=== PATIENT | male | born 1995 ===

== ENCOUNTER 2025-03-31 13:58 | Emergency (ER) | payer BC, SELFPAY ==
--- OUTSIDE RECORDS SUMMARY | 2023-02-07 18:00 | XMS_ITS | Encounter Summary ---
Author Organization [facility] Address [address] [place] [id number] Care Team Providers Care Floor Renovator Name Role Phone Pcp, No Primary Care Provider Unavailabl e Encounter Details Date Type Department Care Team (Latest Contact Info) Description 02/07/2023 7:00 PM EDT Hospital Encounter [facility] [address] [place] [address] [place] [phone] Lei James MD [address] [place] [id number] Acute midline low back pain without sciatica Social History Tobacco Use Types Packs/Day Years Used Date Smoking Tobacco: Never Smokeless Tobacco: Never Alcohol Use Standard Drinks/Week Comments Yes 0 (1 standard drink = 0.6 oz pur e alcohol) social/rare Sex and Gender Information Value Date Recorded Sex Assigned at Not on file Legal Sex Male 5:16 PM EDT Gender Identity Not on file Sexual Orientation Not on file documented as of this encounter Plan of Treatment Not on file documented as of this encounter Procedures Procedure Name Priority Date/Time Associated Diagnosis Comments XR LUMBAR SPINE 2 OR 3 VIEWS Routine 02/07/2023 7:18 PM EDT Acute midline low back pain without sciatica documented in this encounter Results * XR Lumbar spine 2 or 3 views (02/07/2023 7:18 PM EDT) Anatomical Region Laterality Modality L-spine Computed Radiogr aphy 02/07/2023 7:20 PM EDT Impressions 02/07/2023 7:21 PM EDT Normal. Narrative 02/07/2023 7:21 PM EDT PROCEDURE: XR LUMBAR SPINE 2 OR 3 VIEWS INDICATION: Pain with lifting today COMPARISON: None. TECHNIQUE: AP and lateral views of the lumbar spine. FINDINGS: The vertebral body heights and alignment are maintained. There is no fracture or bone destruction. The disc spaces are preserved. The visualized soft tissues are unremarkable. Procedure Note Elias Mosqueda MD - 02/07/2023 PROCEDURE: XR LUMBAR SPINE 2 OR 3 VIEWS INDICATION: Pain with lifting today COMPARISON: None. TECHNIQUE: AP and lateral views of the lumbar spine. FINDINGS: The vertebral body heights and alignment are maintained. Thereis no fracture or bone destruction. The disc spaces are preserved. Thevisualized soft tissues are unremarkable. IMPRESSION: Normal. us Lei James MD [facility] ORDERAB LES Final Result documented in this encounter Visit Diagnoses Diagnosis Acute midline low back pain without sciatica documented in this encounter Care Teams Floor Renovator Relationship Specialty Start Date End Date Pcp, No PCP - General General Medicine 12/26/16 documented as of this encounter
--- NOTE | ~2025-03-31 | CT_ITS ---
CLINICAL HISTORY: abdominal pain n v CT abdomen and pelvis with contrast Comparison: None provided Findings: No consolidation or effusion. The gallbladder is unremarkable. No biliary ductal dilatation. The liver is unremarkable. The spleen is enlarged. Pancreas is normal. Adrenal glands and kidneys are normal. No ureteral stones and no hydronephrosis or hydroureter. No perinephric stranding. No bowel obstruction, pneumoperitoneum, or pneumatosis. No free fluid or loculated fluid collection. No adenopathy. Pelvic contents unremarkable. Normal appendix. Abdominal aorta normal in size. The bones are intact. IMPRESSION: 1. No acute findings. 2. Splenomegaly. This document has been electronically signed by: Miranda Rebolledo MD on 03/31/2025 17:52:36
[2025-03-31 14:08] VITALS: BP 120/82; BP 122/65; PULSE 106; PULSE 124; RESP 20; TEMP 37.8; O2SAT 98; O2SAT 99; BMI 29.8
--- NOTE | 2025-03-31 14:22 | ED_ITS ---
HPI - General Adult General Chief complaint: Nausea/Vomiting/Diarrhea Stated complaint: N/V/D Time Seen by Provider: 03/31/25 14:09 Source: patient and EMS Mode of arrival: EMS Limitations: no limitations History of Present Illness ED Provider: CELESTINA GALARZA PA-C HPI narrative: 29 y/o male with no PMHX presents to the ED with complaints of nausea, vomiting, and diarrhea since this morning. States he woke up for work at 4:30AM, vomited, and a few hours later developed diarrhea and has had persisting episodes every hour and a half since then. He tried to take pepto this morning but threw it up. Also reports feeling dehydrated, lightheadedness, diffuse abdominal pain. Natan had similar symptoms starting 5 days ago. Denies urinary symptoms, blood in vomit or stool, back pain, sore throat, chest pain, or trouble breathing. Related Data Previous Rx's ?Medication ?Instructions ?Recorded ondansetron 4 mg disintegrating 4 mg PO Q8H PRN nausea and 03/31/25 tablet vomiting #20 tabs Allergies Allergy/AdvReac Type Severity Reaction Status Date / Time sulfamethoxazole (From Allergy Unknown Verified 03/31/25 14:10 Bactrim) trimethoprim (From Bactrim) Allergy Unknown Verified 03/31/25 14:10 Review of Systems 2 Review of Systems: Yes all other systems are reviewed and are negative PMFSH Past Medical History Attestation statement: The following information was validated with the patient. Source: old records reviewed and nursing notes reviewed Physical Exam ED Vital Signs: Vital Signs - 24 hr 03/31/25 14:08 03/31/25 16:21 03/31/25 18:31 Temperature 100.0 F 98.1 F 99.6 F Pulse Rate 106 H 89 92 Respiratory Rate 20 22 H 18 Blood Pressure 120/82 115/58 L 111/63 Pulse Oximetry 99 99 95 Oxygen Delivery Method Room Air Room Air Room Air 03/31/25 18:43 Temperature 99.6 F Pulse Rate 92 Respiratory Rate 18 Blood Pressure 111/63 Pulse Oximetry 95 Oxygen Delivery Method Room Air BMI result Body Mass Index 29.8 tachycardic, vitals are otherwise wnl General: Well appearing, in no acute distress. Skin: Warm, dry, intact. No rashes or lesions. Head: Normocephalic, atraumatic. EENT: Hearing is intact b/l. Conjunctiva clear. Sclera is anicteric. PERRLA. EOM intact. Moist mucous membranes.? Neck: Supple without LAD Cardiac: Chest wall symmetric. RRR Lungs: Normal respiratory effort without accessory muscle use. CTA bilaterally Abdomen: obese, soft, nondistended. diffusely ttp. No rebound tenderness or guarding. Positive BS x4. negative Hickman sign. Back: No midline spinous or paraspinal tenderness. No step off deformity. Ext: Upper and lower extremities atraumatic, without tenderness, deformity, swelling or erythema Neuro: AOx3. Normal speech. Ambulating with steady gait. Course Course Course Narrative: 1615 -- CBC without leukocytosis however patient has 13% bands. h&h stable. chemistry showing hypomagnesemia to 1.5 - normal potassium. IV repletion ordered. total bili mildly elevated to 1.2 - there is no hickman sign. lipase wnl. no jolynn. random glucose 116 - no gap. > ct a/p pending. stool studies ordered. > medicated w/ IVF, zofran and toradol with improvement in symptoms. requesting ice chips. > this is likely viral. he does not meet criteria for severe sepsis at this time. 1700 -- patient is stable at this time. signout given to Gorge PARADA pending imaging and disposition - suspect d/c home. Reevaluation(s) Reevaluation #1: Patient received in sign-out at change of shift pending CT scan. The CT scan shows an enlarged spleen but otherwise no acute findings. Discussed this with the patient. He has not had any further diarrhea or nausea. He is still for discharge at this time Time: 18:35 Medications Administered Discontinued Medications Generic Name Dose Route Start Last Admin Trade Name Freq PRN Reason Stop Dose Admin Sodium Chloride 1,000 mls @ 999 mls/hr 03/31/25 15:00 03/31/25 16:05 Ns IV 03/31/25 16:00 Infused .Q1H1M KIKI Infusion Magnesium Sulfate 2 gm in 50 mls @ 25 mls/hr 03/31/25 15:50 03/31/25 18:38 Magnesium Sulfate/H2o IV 03/31/25 17:49 Infused ONCE ONE Infusion Iohexol 85 ml 03/31/25 16:53 03/31/25 16:53 Iohexol 350 Mg/Ml 100 Ml Infus..Btl IV 03/31/25 16:54 85 ml ONCE ONE Administration Ketorolac Tromethamine 15 mg 03/31/25 16:11 03/31/25 16:16 Ketorolac Tromethamine 15 Mg/Ml Vial IVPUSH 03/31/25 16:12 15 mg ONCE ONE Administration Ondansetron HCl 4 mg 03/31/25 14:46 03/31/25 15:02 Ondansetron Hcl 4 Mg/2 Ml Vial IVPUSH 03/31/25 14:47 4 mg ONCE ONE Administration Medical Decision Making Medical Decision Making [facility] Narrative: 29 y/o male with no PMHX presents to the ED with complaints of nausea, vomiting, and diarrhea since this morning. patient is tachycardic, afebrile. he is uncomfortable appearing however in NAD. on exam, abdomen is obese, soft, nondistended. diffusely ttp. No rebound tenderness or guarding. Positive BS x4. negative Hickman sign. Differential diagnosis includes gastroenteritis, gastritis, PUD. Abdominal exam without peritoneal signs. No evidence of acute abdomen at this time. Well appearing. Moderate suspicion for acute hepatobiliary disease (including acute cholecystitis). Less likely to represent acute pancreatitis, perforated ulcer/ GI bleed, acute infectious processes (pneumonia, hepatitis, pyelonephritis), atypical appendicitis, vascular catastrophe, bowel obstruction or viscus perforation. Presentation not consistent with other acute, emergent causes of abdominal pain at this time. Plan for labs, IVF + antiemetic, re-evalutaion. Differential Diagnosis Differential Diagnoses: The differential diagnosis associated with the presentation includes as above. Admission/Observation not indicated Lab Data [facility] Lab Attestation statement: I reviewed the patient's lab results. as above. 03/31/25 15:15 03/31/25 15:15 Labs: Lab Results 03/31/25 Range/Units 15:15 WBC 7.7 (4.8-10.8) X10*3/uL RBC 5.14 (4.60-5.80) X10*6/uL Hgb 15.8 (14.0-18.0) g/dl Hct 44.1 (42.0-52.0) % MCV 85.8 (80.0-98.0) fL MCH 30.7 (27.0-33.0) pg MCHC 35.8 (31.0-36.0) g/dl RDW 12.1 (11.0-16.0) % Plt Count 199 (160-400) X10*3/uL MPV 9.8 (9.4-12.4) fL Immature Gran % (Auto) Cancelled Neut % (Auto) Cancelled Lymph % (Auto) Cancelled [place] % (Auto) Cancelled Eos % (Auto) Cancelled Baso % (Auto) Cancelled Lymph # (Auto) Cancelled [place] # (Auto) Cancelled Eos # (Auto) Cancelled Baso # (Auto) Cancelled Abs Immat Gran (auto) Cancelled Absolute Neuts (auto) Cancelled Absolute Nucleated RBC 0.000 (0.0-0.012) X10*3/uL Nucleated RBC % (auto) 0.0 (0.0-0.2) /100WBC Neutrophils % (Manual) 74 H (45-73) % Band Neutrophils % 13 H (3-5) % Lymphocytes % (Manual) 7 L (20-40) % Monocytes % (Manual) 6 (2-11) % Abs Neuts (Manual) 6.7 (2.0-8.3) X10*3/uL Lymphocytes # (Manual) 0.5 L (1.2-4.9) X10*3/uL Monocytes # (Manual) 0.5 (0.1-1.2) X10*3/uL Platelet Estimate NORMAL (NORMAL) Plt Morphology Comment NORMAL RBC Morphology NOTED Macrocytosis 1+ (5-14) /OIF Smear Tech's Comments MANUAL DIFF Sodium 142 (135-145) mmol/L Potassium 3.7 (3.3-5.1) mmol/L Chloride 107 (96-108) mmol/L Carbon Dioxide 25 (22-29) mmol/L Anion Gap 14 (12-20) BUN 15 (9-16) mg/dL Creatinine 1.21 (0.5-1.4) mg/dL Estim Creat Clear Calc 111.1 Estimated GFR > 60 Random Glucose 116 H (60-115) mg/dL Calcium 9.1 (8.4-10.2) mg/dL Magnesium 1.5 L (1.6-2.6) mg/dL Total Bilirubin 1.2 H (0.0-1.0) mg/dL AST 36 (5-37) U/L ALT 55 H (0-40) U/L Alkaline Phosphatase 69 (39-117) U/L Total Protein 7.0 (6.5-8.0) g/dL Albumin 4.7 (3.5-5.0) g/dL Lipase 28 (8-78) U/L Independent Interpretation I performed an independent interpretation of an: CT Scan Interpretation: ct a/p without bowel obstruction Radiology Impression Discussion of test interpretation with radiology: I have reviewed the radiologist's reading. Radiologist Impression: Procedure(s): CT abdomen pelvis w IV con Accession Number(s): [id number] cc: Physician,Unknown ; Celestina Galarza~ Report Number: [id number]: Total DLP = 717.00 mGy-cm Reason for Exam: abdominal pain n/v CLINICAL HISTORY: abdominal pain n v CT abdomen and pelvis with contrast Comparison: None provided Findings: No consolidation or effusion. The gallbladder is unremarkable. No biliary ductal dilatation. The liver is unremarkable. The spleen is enlarged. Pancreas is normal. Adrenal glands and kidneys are normal. No ureteral stones and no hydronephrosis or hydroureter. No perinephric stranding. No bowel obstruction, pneumoperitoneum, or pneumatosis. No free fluid or loculated fluid collection. No adenopathy. Pelvic contents unremarkable. Normal appendix. Abdominal aorta normal in size. The bones are intact. IMPRESSION: 1. No acute findings. 2. Splenomegaly. Independent Historian Clinical information obtained from an independent historian. History obtained from or confirmed by: EMS External Record Review External record reviewed: Inpatient record Prescription Management I considered prescription management with: Other (zofran) Social Determinants Patient?s care significantly limited by Social Determinants of Health including: Other Social Determinant of Health Critical Care Time Critical Care Time Critical Care Time: No Discharge Plan Discharge Clinical Impression: Nausea & vomiting Patient Disposition: Home, Self-Care Instructions: Gastroenteritis (ED) Additional Instructions: Your workup today was reassuring.? Your symptoms are most consistent with a viral stomach bug, also known as gastroenteritis.? The treatment for this is supportive care. Symptoms usually resolve on their own in 48-72 hours.? The recommendation is rest and lots of oral hydration.? For the next 24 hours, stick to a MONI diet (bananas rice, applesauce, tea, and toast) Zofran is an anti-nausea medication. This has been sent to your pharmacy for you to take as needed for nausea.? You can also try over the counter Pepto Bismol or Imodium as needed for upset stomach and diarrhea.? Follow up with your primary care provider this week. If you develop new or worsening symptoms call 911 or come back to the ER for further evaluation. Prescriptions: New ondansetron 4 mg tablet,disintegrating 4 mg PO Q8H PRN (Reason: nausea and vomiting) Qty: 20 0RF Referrals: Physician,Unknown J [Primary Care Provider, Medical] Stand Alone Forms: Work/School Release Interventions: ED Discharge Assessment Last Done: 03/31/25 18:43 Discharge Date/Time: 03/31/25 18:44 Print Language: Kazakh
[2025-03-31 15:21] LABS: Hematocrit 44.1 % (42.0-52.0); Hemoglobin 15.8 g/dl (14.0-18.0); Mean Corpuscular HGB Conc 35.8 g/dl (31.0-36.0); Mean Corpuscular Hemoglobin 30.7 pg (27.0-33.0); Mean Corpuscular Volume 85.8 fL (80.0-98.0); NRBC Abs Auto 0.000 X10*3/uL (0.0-0.012); NRBC Pct Auto 0.0 /100WBC (0.0-0.2); Platelet Count 199 X10*3/uL (160-400); Red Blood Count 5.14 X10*6/uL (4.60-5.80); White Blood Count 7.7 X10*3/uL (4.8-10.8)
[2025-03-31 15:43] LABS: Alanine Aminotransferase 55 U/L (0-40); Albumin Level 4.7 g/dL (3.5-5.0); Alkaline Phosphatase 69 U/L (39-117); Anion Gap 14 (12-20); Aspartate Amino Transferase 36 U/L (5-37); Blood Urea Nitrogen 15 mg/dL (9-16); Calcium 9.1 mg/dL (8.4-10.2); Carbon Dioxide 25 mmol/L (22-29); Chloride 107 mmol/L (96-108); Creatinine Clr Calc Pharmacy 111.1; Estimated Glomerular Filt Rate > 60; Lipase 28 U/L (8-78); Magnesium 1.5 mg/dL (1.6-2.6); Potassium 3.7 mmol/L (3.3-5.1); Sodium 142 mmol/L (135-145); Total Protein 7.0 g/dL (6.5-8.0)
[2025-03-31 15:57] LABS: Neutrophils Percent Manual 74 % (45-73)
[2025-03-31 15:59] LABS: Band Neutrophils Percent 13 % (3-5); Lymphocytes Absolute Manual 0.5 X10*3/uL (1.2-4.9); Lymphocytes Percent Manual 7 % (20-40); Monocytes Absolute Manual 0.5 X10*3/uL (0.1-1.2); Monocytes Percent Manual 6 % (2-11); Neutrophils Absolute Manual 6.7 X10*3/uL (2.0-8.3)
[2025-03-31 16:00] LABS: Macrocytosis 1+ (5-14) /OIF; RBC Morphology NOTED
[2025-03-31] MEDS: Magnesium Sulfate/H2O 2 GM/50 ML PIGGYBACK IV (16:01)
--- NOTE | 2025-03-31 16:05 | PC.NURSE ---
Patient states he is no longer nauseaus.
[2025-03-31 16:21] VITALS: BP 115/58; PULSE 89; RESP 22; TEMP 36.7; O2SAT 99
[2025-03-31] MEDS: iohexoL 350 MG/ML 100 ML INFUS..BTL 85 ML IV (16:53)
[2025-03-31 18:31] VITALS: BP 111/63; PULSE 92; RESP 18; TEMP 37.6; O2SAT 95
[2025-03-31 18:43] VITALS: BP 111/63; PULSE 92; RESP 18; TEMP 37.6; O2SAT 95
--- OUTSIDE RECORDS SUMMARY | 2025-04-01 03:23 | XMS_ITS | Clinical Summary ---
Author Organization [facility] Address [address] [place] [address] Care Team Providers Care County Auditor Name Role Phone Carlos Enrique Spence MD Primary Care Provider [phone] Source Comments Please note that some or all of the patient's information could have additional privacy protections. State laws allow health care providers to render certain types of treatment to minors without parental consent. Please do not assume that this information can be shared solely by obtaining just the consent of the patient's parent/guardian. Please determine if all or part of the patient's care was rendered without parent/guardian involvement. And, if so, obtain the minor's consent prior to disclosure.[facility] Allergies Active Allergy Reactions Criticality Noted Date Comments Sulfamethoxazole-Trimethoprim Low 2013 Unknown reaction Social History Tobacco Use Types Packs/Day Years Used Date Smoking Tobacco: Never Assessed Sex and Gender Information Value Date Recorded Sex Assigned at Not on file Legal Sex Male 2:15 AM EST Gender Identity Not on file Sexual Orientation Not on file Last Filed Vital Signs Vital Sign Reading Time Taken Comments Blood Pressure 122/63 04/04/2014 9:30 PM EST Pulse 60 04/04/2014 9:30 PM EST Temperature 36.5 C (97.7 F) 04/04/2014 9:30 PM EST Respiratory Rate 16 04/04/2014 9:30 PM EST Oxygen Saturation 99% 04/04/2014 6:41 PM EST Inhaled Oxygen Concentration - - Weight 87.8 kg (193 lb 9 oz) 04/04/2014 6:41 PM EST Height - - Body Mass Index - - Plan of Treatment Not on file Insurance [facility] Care Teams County Auditor Relationship Specialty Start Date End Date Carlos Enrique Spence MD [address] [place] [address] PCP - General 04/04/14
--- OUTSIDE RECORDS SUMMARY | 2025-04-01 03:24 | XMS_ITS | Encounter Summary ---
Author Organization [facility] Address [address] [place] [address] Care Team Providers Care Radio Equipment Installer Name Role Phone Pcp, No Primary Care Provider Unavailabl e Encounter Details Date Type Department Care Team (Late st Contact Info) Description 07/09/2024 Scanned Document [facility] [address] [facility] [address] [place] [phone] Provider, Generic Social History Tobacco Use Types Packs/Day Years [...] on file documented as of this encounter Visit Diagnoses Not on filedocumented in this encounter Care Teams Radio Equipment Installer Relationship Specialty Start Date End Date Pcp, No PCP - General General Medicine 12/26/16 documented as of this encounter
--- OUTSIDE RECORDS SUMMARY | 2025-04-01 03:24 | XMS_ITS | Encounter Summary ---
Author Organization [facility] Address [address] [place] [address] Care Team Providers Care Cleat Layer Name Role Phone Pcp, No Primary Care Provider Unavailabl e Encounter Details Date Type Department Care Team (Late st Contact Info) Description 07/06/2024 Scanned Document [facility] 80 [facility] [address] [place] [phone] Provider, Generic Social History Tobacco Use Types [...] on filedocumented in this encounter Care Teams Cleat Layer Relationship Specialty Start Date End Date Pcp, No PCP - General General Medicine 12/26/16 documented as of this encounter
--- OUTSIDE RECORDS SUMMARY | 2025-04-01 03:24 | XMS_ITS | Encounter Summary ---
Author Organization [facility] Address [address] [place] [address] Care Team Providers Care Sulfur Burner Name Role Phone Pcp, No Primary Care Provider Unavailabl e Encounter Details Date Type Department Care Team (Late st Contact Info) Description 07/06/2024 Scanned Document [facility] 80 [facility] [address] [place] [phone] Provider, Generic Social History Tobacco Use Types [...] on filedocumented in this encounter Care Teams Sulfur Burner Relationship Specialty Start Date End Date Pcp, No PCP - General General Medicine 12/26/16 documented as of this encounter
--- OUTSIDE RECORDS SUMMARY | 2025-04-01 03:24 | XMS_ITS | Encounter Summary ---
Author Organization [facility] Address [address] [place] [address] Care Team Providers Care Wellness Trainer Name Role Phone Pcp, No Primary Care Provider Unavailabl e Encounter Details Date Type Department Care Team (Late st Contact Info) Description 07/09/2024 Scanned Document [facility] 80 [facility] [address] [place] [phone] Provider, Generic Social History Tobacco Use Types [...] on filedocumented in this encounter Care Teams Wellness Trainer Relationship Specialty Start Date End Date Pcp, No PCP - General General Medicine 12/26/16 documented as of this encounter
--- OUTSIDE RECORDS SUMMARY | 2025-04-01 03:24 | XMS_ITS ---
Author Name [facility] Organization Unknown History of Medication Use Medication Directions Dispensed Refills Start Date End Date Stat us loperamide (IMODIUM A-D) 2 MG capsule Take 1 capsule (2 mg total) by mouth every 4 (four) hours as needed for diarrhea. 02/17/2025 active albuterol (PROVENTIL HFA; VENTOLIN HFA) 108 (90 Base) MCG/ACT inhaler Inhale 2 puffs 4 times daily (every 6 hours) as needed for shortness of breath. 07/06/2024 active benzonatate (TESSALON) 200 MG capsule Take 1 capsule (200 mg total) by mouth 3 (three) times a day as needed for cough. 07/06/2024 active fluticasone (FloNASE) 50 mcg/spray nasal spray 1 spray into each nostril daily. 07/06/2024 active oseltamivir (TAMIFLU) 75 MG capsule Take 1 capsule (75 mg total) by mouth 2 (two) times a day. 07/06/2024 active proMETHAZINE-dextromet horphan (proMETHAZINE-DM) 6.25-15 MG/5ML syrup Take 5 mL by mouth nightly as needed for cough. 07/06/2024 active cyclobenzaprine (FLEXERIL) 10 MG tablet Take 1 tablet (10 mg total) by mouth nightly. 02/07/2023 02/13/2023 active fluticasone (FloNASE) 50 mcg/spray nasal spray 2 sprays into each nostril daily. 01/31/2022 07/06/2024 active predniSONE (DELTASONE) 10 MG tablet Take 4 tabs PO x 2 days, then 3 tabs PO x 2 days, then 2 tabs PO x 2 days, then 1 tab PO x 2 days. With food. 01/31/2022 active amoxicillin (AMOXIL) 875 MG tablet Take 1 tablet (875 mg total) by mouth 2 (two) times a day. 01/15/2022 01/31/2022 aborted amoxicillin-clavulanat e (AUGMENTIN) 875-125 MG per tablet Take 1 tablet by mouth 2 (two) times a day. 11/14/2021 02/11/2022 active predniSONE (DELTASONE) 20 MG tablet Take 2 tablets (40 mg total) by mouth daily. With food. 11/14/2021 01/31/2022 aborted lidocaine (XYLOCAINE) 2 % solution Take 5 mL by mouth 4 (four) times a day as needed for mild pain. Swish and spit. 11/01/2021 active acetaminophen (TYLENOL) 120 MG suppository Insert 120 mg into the rectum 4 times daily (every 6 hours) as needed for moderate pain. active ibuprofen (MOTRIN) 100 mg/5 mL suspension Take 200 mg by mouth every 4 (four) hours as needed for mild pain. active Allergies Allergen Reaction Severity Comment Documented Date Source Statu s SULFAMETHOXAZOLE-TR IMETHOPRIM UNKNOWN/PATIENT AND FAMILY UNABLE TO DEFINE 02/17/2020 [facility] active Immunizations Vaccine Date Source Lot Number Status Tdap 10/28/2023 [facility] [id number] completed Encounters Encounter Type Encounter Reason Primary Diagnosis Location Date Ambulatory Diarrhea Diarrhea [facility] 02/17/2025 Ambulatory Other Other [facility] 07/09/2024 Ambulatory Cough Cough [facility] 07/06/2024 Ambulatory Finger Laceration [facility] 10/28/2023 Ambulatory Low back pain, unspecified Low back pain, unspecified [facility] 02/07/2023 Ambulatory Low back pain, unspecified Low back pain, unspecified [facility] 02/07/2023 Ambulatory Acute recurrent maxillary sinusitis [facility] 01/31/2022 Ambulatory Acute tonsilliti s, unspecified [facility] 01/15/2022 Ambulatory Acute sinusitis, unspecified [facility] 11/14/2021 Ambulatory Acute upper respiratory infection, unspecified [facility] 11/01/2021 Ambulatory Acute maxillary sinusitis, unspecified [facility] 08/07/2021 Ambulatory COVID-19 [facility] 05/12/2021 Care Team Organization Name Specialty Phone Email Start Date End Da te [facility] PCP Division Manager 02/17/2025 03/18/2025 [facility] PCP,No Primary Care 01/31/2022 03/18/2025 [facility] NO PCP Primary Care 08/07/2021 01/31/2022
--- OUTSIDE RECORDS SUMMARY | 2025-04-01 03:24 | XMS_ITS | Clinical Summary ---
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 30 capsule 02/17/2025 Active Active Problems No known active problems Encounters Date Type Department Care Team Description 02/17/2025 11:45 AM EDT Office Visit [facility] [address] [place] [address] Rogeilo Khan MD Vanasse, Allison, PA-C Diarrhea, unspecified type (Primary Dx) 02/17/2025 Travel from Last 3 Months Immunizations Immunization Administration Dates Next Due Tdap 10/28/2023 Social History Tobacco Use Types Packs/Day Years Used Date Smoking Tobacco: Never Smokeless Tobacco: Never Tobacco Cessation:Counseling Given: Not Answered Alcohol Use Standard Drinks/Week Comments Yes 0 (1 standard drink = 0.6 oz pur e alcohol) social/rare Sex and Gender Information Value Date Recorded Sex Assigned at Not on file Legal Sex Male 5:16 PM EDT Gender Identity Not on file Sexual Orientation Not on file Last Filed Vital Signs Vital Sign Reading Time Taken Comments Blood Pressure 114/82 02/17/2025 11:46 AM EDT Pulse 78 02/17/2025 11:46 AM EDT Temperature 36.3 C (97.4 F) 02/17/2025 11:46 AM EDT Respiratory Rate 18 07/09/2024 12:26 PM EST Oxygen Saturation 98% 02/17/2025 11:46 AM EDT Inhaled Oxygen Concentration - - Weight 99.8 kg (220 lb) 02/17/2025 11:46 AM EDT Height 182.9 cm (6') 02/17/2025 11:46 AM EDT Body Mass Index 29.84 02/17/2025 11:46 AM EDT Plan of Treatment Health Maintenance Due Date Last Done Comments Hepatitis C Virus Screening 1996 HIV Screening 2009 Hepatitis B Vaccines (1 of 3 - 19+ 3-dose series) 08/05/2015 Influenza Vaccine 12/11/2024 04/06/2018 COVID-19 Vaccine (2024-2 6 season) 2025 09/13/2020, 08/16/2020 DTaP/Tdap/Td Vaccines (2 - T d or Tdap) 10/27/2033 10/28/2023 HPV Vaccines (No Doses Required) Completed Pneumococcal Vaccine: Pediatric (0-5 Years) and At-Risk Patients (6 to 49 Years) Aged Out No longer eligible b ased on patient's age to complete this topic [facility] Member Subscriber Plan / Payer (Ef fective 2024-Present) Name:Aakash Freeman Member ID:[id number] Relation to Subscriber:Self Name:Aakash Freeman Subscriber ID:[id number] Payer ID:[id number] ([facility]) Type:Not on file Address: [address] [address] [place] [address] [place] [address] Care Teams Filter Tender Jelly Relationship Specialty Start Date End Date Pcp, No PCP - General General Medicine 12/26/16
--- OUTSIDE RECORDS SUMMARY | 2025-04-01 03:25 | XMS_ITS | Clinical Summary ---
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 Name Role Phone Unavailable Primary Care Provider Unavailabl e Allergies Active Allergy Reactions Criticality Noted Date Comments Sulfamethoxazole-Trimethoprim Low 2013 Unknown reaction Medications No known medications Active Problems No known active problems Family History Medical History Relation Name Comments Hyperlipidemia Father Hypertension Father Heart disease Maternal Grandfather Cancer Maternal Grandmother Diverticulitis Mother Diabetes Paternal Grandfather Schizo affective disorder Paternal Grandfather Anemia Sister Anxiety disorder Sister Relation Name Status Comments Brother Alive Father Alive Maternal Grandfather Maternal Grandmother Mother Alive Paternal Grandfather Paternal Grandmother Sister Alive Social History Tobacco Use Types Packs/Day Years Used Date Smoking Tobacco: Every Day Smokeless Tobacco: Never Alcohol Use Standard Drinks/Week Comments Yes 0 (1 standard drink = 0.6 oz pur e alcohol) Occasional Sex and Gender Information Value Date Recorded Sex Assigned at Male 01/16/2019 3:01 AM EDT Gender Identity Not on file Sexual Orientation Not on file Job Start Date Occupation Industry Not on file Not on file Not on file Last Filed Vital Signs Vital Sign Reading Time Taken Comments Blood Pressure 110/70 03/16/2019 1:47 PM EST Pulse 58 03/16/2019 1:47 PM EST Temperature 36.8 C (98.3 F) 03/16/2019 1:47 PM EST Respiratory Rate 17 01/16/2019 2:41 AM EDT Oxygen Saturation 98% 03/16/2019 1:47 PM EST Inhaled Oxygen Concentration - - Weight 94.8 kg (209 lb) 03/16/2019 1:47 PM EST Height 182.2 cm (5' 11.75 ) 01/26/2019 4:11 PM E DT Body Mass Index 28.54 01/26/2019 4:11 PM EDT Plan of Treatment Health Maintenance Due Date Last Done Comments Hepatitis B Vaccines (1 of 3 - 3-dose series) 1996 Hepatitis C Screening 1996 COVID-19 Vaccine (#1) 02/04/1997 Pneumococcal Vaccine (1 of 2 - PCV) 2002 Depression Screening 2008 Preventative Health Evaluation 2014 Tobacco Cessation Counseling 2014 DTap / Tdap / Td (1 - Tdap) 08/05/2015 BMI Counseling 03/16/2020 03/16/2019, 01/26/2019 Influenza Vaccine (#1) 2025 RSV Ped < 20 months Aged Out No longe r eligible based on patient's age to complete this topic
== END 2025-03-31 18:44 | disposition home or self-care (01) ==
PROVIDERS: Physician Assistant Medical; Emergency Provider Emergency Medicine
DX: R11.2 Nausea with vomiting, unspecified (principal); R19.7 Diarrhea, unspecified; R10.9 Unspecified abdominal pain; R42 Dizziness and giddiness
CPT/HCPCS: 36415; 74177; 80053; 83690; 83735; 85007; 85027; 96361; 96365; 96366; 96375; 99284; 99285; J1885; J2405; J3475; Q9967

== ENCOUNTER → 2025-03-31 16:00 | Outpatient (BNV) | payer BC, SELFPAY | PROVIDERS: Emergency Provider Emergency Medicine; Visit Provider Specialist | DX: R10.9 Unspecified abdominal pain (principal); R11.2 Nausea with vomiting, unspecified; R16.0 Hepatomegaly, not elsewhere classified | CPT/HCPCS: 74177 ==